=== PATIENT | male | born 1995 | race Hispanic/Latino ===

== ENCOUNTER 2020-03-01 11:04 | Emergency (ER) | payer OTHER ==
[~2020-03-01] VITALS: Ht 175.3 cm; Wt 80.0 kg
[2020-03-01] MEDS ORDERED: NAPROXEN500 MG PO (13:33)
[2020-03-01 14:08] VITALS: BP 116/79
== END 2020-03-01 14:17 | disposition home or self-care (01) | DRG 538 ==
LOC: ED 11:04
DX: S73.101A Unspecified sprain of right hip, initial encounter (principal); X50.0XXA Overexertion from strenuous movement or load, initial encounter; Y93.89 Activity, other specified; Y92.73 Farm field as the place of occurrence of the external cause; Y99.0 Civilian activity done for income or pay